=== PATIENT | male | born 1985 | race Caucasian/White ===

== ENCOUNTER → 2021-12-08 15:57 | Outpatient (CLI) | payer OTHER, SELFPAY ==
--- NOTE | ~2021-12-08 | US_ITS ---
US thyroid INDICATION: Thyroid disorder. Abnormal labs. TECHNIQUE: Real-time sonographic images of the thyroid gland were obtained. COMPARISON: No prior studies for comparison. FINDINGS: The right thyroid lobe measures 4.5 x 1.2 x 1.2 cm. The left thyroid lobe measures 4.2 x 1 .4 x 1.3 cm. There is normal echotexture and echogenicity throughout the thyroid gland. No discrete n odules identified. Normal vascular flow is present. IMPRESSION: 1. Normal thyroid without discrete nodule or abnormal vascularity. Reviewed, dictated and finalized at location A.
== END ==
PROVIDERS: PCP Nurse Practitioner Adult Health; Visit Provider Nurse Practitioner Adult Health
DX: E07.9 Disorder of thyroid, unspecified (principal)
CPT/HCPCS: 76536

== ENCOUNTER 2022-09-27 08:01 | Outpatient (CLI) | payer OTHER, SELFPAY ==
[2022-09-27 14:16] LABS: Kit Draw Collected
== END 2022-09-27 08:02 | disposition home or self-care (01) ==
LOC: ANHGOSHLAB 08:04
PROVIDERS: PCP Internal Medicine; Visit Provider Clinical Nurse Specialist
DX: E55.9 Vitamin D deficiency, unspecified (principal); F41.9 Anxiety disorder, unspecified; M45.9 Ankylosing spondylitis of unspecified sites in spine; R53.83 Other fatigue; Z13.220 Encounter for screening for lipoid disorders
CPT/HCPCS: 36415

== ENCOUNTER 2022-12-03 11:01 | Outpatient (CLI) | payer OTHER, SELFPAY ==
[2022-12-03 11:37] LABS: Kit Draw Collected
== END 2022-12-03 11:02 | disposition home or self-care (01) ==
LOC: ANHGOSHLAB 11:03
PROVIDERS: PCP Internal Medicine; Visit Provider Clinical Nurse Specialist
DX: D64.9 Anemia, unspecified (principal); R53.83 Other fatigue
CPT/HCPCS: 36415

== ENCOUNTER 2023-01-02 14:30 | Emergency (ER) | payer OTHER, SELFPAY ==
--- NOTE | ~2023-01-02 | XR_ITS ---
EXAMINATION: XR chest 2V Exam Date/Time: 01/02/2023 15:05 CDT HISTORY: dizziness sob/chest pain 4 days ago Comparison: None. RESULT: Lines, tubes, and devices: None. Lungs and pleura: Clear. Cardiomediastinal silhouette: Unremarkable. Other: No acute osseous or upper abdominal finding. IMPRESSION: No acute cardiopulmonary process. Reviewed, dictated and finalized at location K.
[2023-01-02 14:37] VITALS: BP 123/66; PULSE 98; RESP 18; TEMP 36.6; O2SAT 100
[2023-01-02 14:38] VITALS: BP 123/66; PULSE 98; RESP 18; TEMP 36.6; O2SAT 100
--- NOTE | 2023-01-02 14:56 | ED.URI ---
HPI - URI/Sore Throat General Chief Complaint: Shortness of Breath/Dyspnea Stated Complaint: Shortness of Breath,Dizziness Time Seen by Provider: 01/02/23 14:40 Source: patient Mode of arrival: ambulatory Limitations: no limitations History of Present Illness HPI Narrative: Pauline is a 37-year-old female patient presenting to the clinic today with complaints of shortness of breath, dizziness, chest pain, and feeling near syncopal. She reports 4 days ago she started having some chest pain and shortness of breath. Chest pain was sharp midsternal nonradiating. States that this pain would come and go for a few seconds to minutes however, that has resolved. Is still having a difficult time taking a deep breath as she feels that she cannot take a deep breath, became diaphoretic and felt as though she was going to pass out today. Denies drinking energy drinks. Denies being outside in the heat. States her PCP placed her on phentermine 3 weeks ago. Patient has history of depression/anxiety- takes Wellbutrin and Lexapro. No cardiopulmonary history. History of anemia and she takes iron. She is a non-smoker- not currently taking any OCP. Denies any fever, chills, upper respiratory symptoms, nausea, vomiting, diarrhea, or urinary symptoms other than urinary frequency. Vital signs reviewed and stable. SpO2 is 100% on room air blood pressure was initially 123/66 with heart rate of 98 beats per minute. Respirations 18 nonlabored MD elicited complaint: other (Shortness of breath, dizziness, chest discomfort) Related Data Home Medications Medication Instructions Recorded Confirmed meloxicam 7.5 mg tablet 7.5 mg PO DAILY 08/04/22 01/02/23 omeprazole 10 mg capsule,delayed 10 mg PO DAILY 08/04/22 01/02/23 release bupropion HCl 150 mg 24 hr tablet, 150 mg PO DAILY 12/03/22 01/02/23 extended release escitalopram oxalate 10 mg tablet 10 mg PO DAILY 01/02/23 01/02/23 Allergies Allergy/AdvReac Type Severity Reaction Status Date / Time No Known Allergies Allergy Verified 01/02/23 14:33 Review of Systems Review of Systems: Pertinent positives per HPI. Patient denies any fever, chills, rash, headache, visual changes, cough,palpitations, nausea, vomiting, diarrhea, constipation, abdominal pain, or any urinary issues. PMFSH Past Medical History Medical History (Updated 01/02/23 @ 16:22 by Navneet Coronado APRN) Anxiety Social History Social History (Updated 12/03/22 @ 10:16 by Candi Franklin [facility]) Smoking status: Former smoker Additional smoking assessment comments: smoked for 12-13 years Alcohol intake: current Alcohol use details: wine Substance use: never Lack of Transportation: No Lack of Food: Never True Current Housing: I Have Housing Concerned About Future Housing: No Difficulty Paying Gas/Electric Bills: No Difficulty Paying for Meds: No Currently Unemployed: No Education: Master's Degree or Higher Difficulty w/ Childcare or Family Care: No Comments At the time of my signature, I reviewed and agree with the nursing past medical, surgical, social, and family history. There is no relevant family history pertinent to the patient complaint. Exam Narrative: General: Well-developed, well nourished,anxious/tearful appearing Head: Normocephalic, atraumatic Eyes: Pupils equally round and reactive to light bilaterally, EOM intact, sclera and conjunctive clear, no discharge, lids normal Ears: TMs intact and clear, ear canals clear, no drainage, grossly hearing normal. Nose: Nares patent, no discharge, no inflammation, no sinus tenderness. Mouth: Oral pharynx without lesions or masses, good dentition, MMM. Neck: Supple, trachea midline, no enlargement of anterior or posterior cervical nodes, no thyroid masses or goiter palpable. Cardio: Regular rate and rhythm, s1 and s2 normal, no murmur appreciated. Resp: Clear to auscultation bilaterally, no rhonchi, rales, wheezing or rubs Abdome
--- NOTE | 2023-01-02 14:57 | ECG_ITS ---
Measurements Intervals [place] Rate: 85 P: 65 [place]: 130 QRS: 66 QRSD: 87 T: 64 QT: 351 QTc: 419 Interpretive Statements SINUS RHYTHM NONSPECIFIC T-WAVE ABNORMALITY- ANTERIOR LEADS BORDERLINE ECG NO PREVIOUS ECG AVAILABLE FOR COMPARISON Electronically Signed On 01-03-2023 0:10:07 CDT by Jermaine Stratton D.O.
[2023-01-02 14:59] LABS: Glucose Point of Care 159 mg/dl (65-105)
[2023-01-02 15:00] VITALS: BP 116/73; PULSE 90
[2023-01-02 15:02] VITALS: BP 123/77; BP 125/76; PULSE 89; PULSE 94
== END 2023-01-02 16:35 | disposition home or self-care (01) ==
PROVIDERS: Emergency Provider Nurse Practitioner Family; PCP Internal Medicine
DX: R07.89 Other chest pain (principal); R06.02 Shortness of breath; R42 Dizziness and giddiness; T50.5X5A Adverse effect of appetite depressants, initial encounter; F41.9 Anxiety disorder, unspecified; R73.9 Hyperglycemia, unspecified; N30.01 Acute cystitis with hematuria; Z87.891 Personal history of nicotine dependence
CPT/HCPCS: 71046; 81003; 82948; 87086; 93005; 99213; G0463

== ENCOUNTER → 2023-04-19 11:09 | Outpatient (REF) | payer OTHER, SELFPAY | LOC: ANHLAB 11:09 | PROVIDERS: PCP Internal Medicine; Visit Provider Plastic Surgery | DX: D48.5 Neoplasm of uncertain behavior of skin (principal); D22.9 Melanocytic nevi, unspecified | CPT/HCPCS: 88305 ==

== ENCOUNTER 2023-06-10 14:57 | Outpatient (CLI) | payer OTHER, SELFPAY ==
[2023-06-10 19:31] LABS: Basophils Percent Auto 0.7 % (0.2-1.2); Eosinophils Percent Auto 0.7 % (0-4.4); Hematocrit 39.6 % (37.0-47.0); Hemoglobin 12.4 g/dL (12.0-15.0); Immature Granulocyte Absolute 0.01 K/mm3 (0.00-0.031); Immature Granulocyte Percent A 0.2 % (0-0.5); Lymphocytes Percent Auto 29.1 % (18.3-44.2); Mean Corpuscular HGB Conc 31.3 g/dl (32-36); Mean Corpuscular Hemoglobin 29.9 pg (26-34); Mean Corpuscular Volume 95.4 fl (80-100); Mean Platelet Volume 9.7 fl (7.4-10.4); Monocytes Absolute Auto 0.3 K/mm3 (0.1-0.6); Neutrophils Absolute Auto 3.8 K/mm3 (1.3-6.7); Neutrophils Percent Auto 64.3 % (45.5-73.1); Platelet Count Result 313 k/mm3 (150-375); Red Blood Count 4.15 M/mm3 (4.2-5.4); Red Cell Distribution Width 12.8 % (11.5-14.5); White Blood Count 5.8 K/mm3 (4.5-10.0)
[2023-06-10 19:54] LABS: Alanine Aminotransferase 19 U/L (6-35); Albumin Level 4.2 g/dL (3.5-5.1); Alkaline Phosphatase 62 U/L (38-126); Anion Gap 8 mmol/L (8-16); Aspartate Amino Transferase 24 U/L (14-36); Bilirubin,Total 0.4 mg/dL (0.2-1.3); Blood Urea Nitrogen 11 mg/dL (7-17); Calcium 9.1 mg/dL (8.4-10.2); Carbon Dioxide 29 mmol/L (22-30); Chloride 102 mmol/L (98-107); Estimated Glomerular Filt Rate > 60; Glucose 94 mg/dL (65-110); Magnesium 2.3 mg/dL (1.6-2.3); Sodium 139 mmol/L (137-145)
[2023-06-10 20:20] LABS: Thyroid Stimulating Hormone 0.656 uIU/mL (0.465-4.680)
[2023-06-13 23:07] LABS: Vitamin D 1,25 (OH)2 Total 53 pg/mL (18-72); Vitamin D2 1,25 (OH)2 <8 pg/mL; Vitamin D3 1,25 (OH)2 53 pg/mL
== END 2023-06-10 14:58 | disposition home or self-care (01) ==
LOC: ANHGOSHLAB 14:58
PROVIDERS: PCP Internal Medicine; Visit Provider Nurse Practitioner Family
DX: E55.9 Vitamin D deficiency, unspecified (principal); L65.9 Nonscarring hair loss, unspecified; R25.2 Cramp and spasm
CPT/HCPCS: 36415; 80053; 82607; 82652; 83735; 84443; 85025

== ENCOUNTER 2023-09-05 12:31 | Outpatient (CLI) | payer OTHER, SELFPAY ==
[2023-09-07 13:31] LABS: DHEA-Sulfate 107 mcg/dL (23-266)
[2023-09-08 06:56] LABS: FSH 13.6 mIU/mL (***); LH 4.5 mIU/mL (***)
[2023-09-08 20:13] LABS: Testosterone Free 1.1 pg/mL (0.1-6.4); Testosterone Total 16 ng/dL (2-45)
[2023-09-12 02:47] LABS: Estradiol, Ultrasensitive 118 pg/mL
== END 2023-09-05 12:32 | disposition home or self-care (01) ==
LOC: ANHLAB 12:32
PROVIDERS: PCP Internal Medicine; Visit Provider Obstetrics & Gynecology
DX: L65.9 Nonscarring hair loss, unspecified (principal)
CPT/HCPCS: 36415; 82627; 82670; 83001; 83002; 83498; 84402; 84403

== ENCOUNTER 2023-09-09 17:07 | Emergency (ER) | payer OTHER, SELFPAY ==
[2023-09-09 17:25] VITALS: BP 145/98; PULSE 79; RESP 16; TEMP 36.6; O2SAT 100
--- NOTE | 2023-09-09 17:33 | ED.GENADULT ---
HPI - General Adult General Chief complaint: Urogenital-Female Stated complaint: Std Test Source: patient, RN notes reviewed and old records reviewed Mode of arrival: ambulatory Limitations: no limitations History of Present Illness HPI narrative: 37-year-old female to [facility] for complaint right lower quadrant tenderness, urinary frequency, burning with urination 5 days. Patient reports history of herpes and recently treated with valacyclovir. Patient denies lesions. Patient endorses she saw PCP on Tuesday and had UA done which was negative. Patient denies vaginal discharge. Patient reports new sexual partner. Patient has appointment with OBGYN next week. Related Data Home Medications Medication Instructions Recorded Confirmed valacyclovir 1 gram tablet 1,000 mg PO DAILY 09/09/23 09/09/23 Allergies Allergy/AdvReac Type Severity Reaction Status Date / Time No Known Allergies Allergy Verified 09/09/23 17:22 Review of Systems Review of Systems: All systems reviewed & are unremarkable except as noted in HPI and below Constitutional: Constitutional: Reports as per HPI and Denies fever(s) Eyes: Eyes: Reports no additional eye complaints ENT: Reports system reviewed and no additional complaints, except as documented Cardiovascular: Cardiovascular: Reports no additional cardiovascular complaints, Denies chest pain and Denies dyspnea Respiratory: Respiratory: Reports no additional respiratory complaints, Denies cough and Denies dyspnea Gastrointestinal: Gastrointestinal: Reports abdominal pain (RLQ tenderness) and Denies nausea Genitourinary: Genitourinary: Reports as per HPI, Reports nocturia and Reports other (burning with urination) Musculoskeletal: Musculoskeletal: Reports no additional musculoskeletal complaints Neurologic: Reports system reviewed and no additional complaints, except as documented Psychiatric: Psychiatric: Reports no additional psychiatric complaints PMFSH Past Medical History Medical History Anxiety Genital herpes Screening mammogram, encounter for Social History Social History Smoking status: Former smoker Second hand tobacco smoke exposure: No Additional smoking assessment comments: smoked for 12-13 years Alcohol intake: current Drinks per week: 7 Alcohol use details: wine Substance use: current Substance use type: marijuana Other substance usage details: 1 time every 2 months? 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 There is no relevant family history pertinent to the patient complaint. Exam Const: General: cooperative, healthy appearing, comfortable, no acute distress, alert and well nourished Nutritional Appearance: well nourished Orientation/consciousness: patient oriented x3 Limitations: no limitations HENMT: Head: normal to inspection Ears: external ears normal Face/Nose/Sinus: Normal external nose present, Normal nares present, normal facial exam, No erythema and No edema Face and sinus: normal facial exam, no erythema and no edema Mouth: Yes Normal oral and pal
[2023-09-09 19:32] LABS: Trichomonas Vag PCR NOT DETECTED (NOT DETECTE)
[2023-09-09 19:55] LABS: Chlamydia trachomatis NOT DETECTED (NOT DETECTE); Neisseria gonorrhoeae PCR NOT DETECTED (NOT DETECTE)
== END 2023-09-09 18:07 | disposition home or self-care (01) ==
PROVIDERS: Emergency Provider Nurse Practitioner Family; PCP Internal Medicine
DX: N30.01 Acute cystitis with hematuria (principal); B95.1 Streptococcus, group B, as the cause of diseases classified elsewhere; Z87.891 Personal history of nicotine dependence; F41.9 Anxiety disorder, unspecified
CPT/HCPCS: 81003; 87086; 87491; 87591; 87661; 99214; G0463

== ENCOUNTER 2023-12-07 15:31 | Emergency (ER) | payer OTHER, SELFPAY ==
--- NOTE | ~2023-12-07 | CT_ITS ---
CT abdomen pelvis w con Ordering provider: Sneha Adame APRN History: . abdominal and flank pain . Comparison: None. Technique: CT abdomen with IV and without oral contrast. Radiation reduction technique utilized. DLP is 253.56 mGy. Findings: VISUALIZED LOWER CHEST: Normal. UPPER ABDOMINAL ORGANS: Liver: Normal. Gallbladder: Normal. Spleen: Normal. Stomach/duodenum: Normal. Pancreas: Normal. Adrenals: Normal. Kidneys: Normal. Urinary bladder: Normal. Uterus: Normal. VISUALIZED BOWEL AND MESENTERY: Fecal material is seen in the colon suggestive of constipation. Focal area of air is seen in the left upper quadrant most likely in small bowel. Follow-up advised. Normal appendix. The bowel is otherwise normal. No free air or free fluid. No mesenteric lymphadenopathy. RETROPERITONEUM: Normal aorta. No retroperitoneal lymphadenopathy. MUSCULOSKELETAL: The superficial soft tissues are normal. Age appropriate degenerative changes of the spine. Bilateral sacroiliacs. IMPRESSION: No evidence of appendicitis, diverticulitis or intestinal obstruction. Constipation. Focal area of air is seen in the left upper quadrant most likely in the small bowel. Follow-up advise d. Reviewed, dictated and finalized at location A. IMPRESSION: No evidence of appendicitis, diverticulitis or intestinal obstruction. Constipation. Focal area of air is seen in the left upper quadrant most likely in the small b owel. Follow-up advised.
[2023-12-07 15:31] VITALS: BP 132/71; PULSE 71; RESP 16; TEMP 36.4; O2SAT 100
--- NOTE | 2023-12-07 16:31 | ED.GENADULT ---
HPI - General Adult General Chief complaint: Abdominal Pain <Sneha De La Vega October, PRECISION LATHE OPERATOR - Last Filed: 12/07/23 19:44> Stated complaint: abd pain <Sneha De La Vega October, PRECISION LATHE OPERATOR - Last Filed: 12/07/23 19:44> Time Seen by Provider: 12/07/23 16:31 <Sneha De La Vega October, PRECISION LATHE OPERATOR - Last Filed: 12/07/23 19:44> Focused HPI: Pauline Sorensen is a 38 y/o female who presents with reports of being treated for a UTI for the past two days - she is currently taking Macrobid. She states she was having a fever 3 days ago. Today she started to have severe right lower abdominal pain at around 0730 and it moved to her back she thought she would have to go straight to the ER but took a pain pill so she could make it to her PCP appointment and her PCP states her UTI is not getting better and she is worried she may have appendicitis. GENERAL: Well-appearing, well-nourished, and in no acute distress. HEAD: Normocephalic, atraumatic. CHEST: Clear to auscultation. ?No respiratory distress. HEART: Regular rate and rhythm.? NEURO: ?Alert and oriented x3. Patient screened in triage and initial orders placed.? ?Additional care and disposition to be based upon?diagnostic testing and treatment. <Sneha De La Vega October, - Last Filed: 12/07/23 19:44> Related Data Home medications: Home Medications Medication Instructions Recorded Confirmed valacyclovir 1 gram tablet 1,000 mg PO DAILY 09/09/23 12/07/23 <Sneha De La Vega October, - Last Filed: 12/07/23 19:44> Allergies/adverse reactions: Allergies Allergy/AdvReac Type Severity Reaction Status Date / Time No Known Allergies Allergy Verified 12/07/23 14:12 <Sneha De La Vega October, - Last Filed: 12/07/23 19:44> Review of Systems Review of Systems: All systems are reviewed and are negative unless stated otherwise in the HPI. <Veto Leiva MD - Last Filed: 12/07/23 19:15> PMFSH Past Medical History Medical History: Medical History Anxiety Genital herpes Screening mammogram, encounter for <Sneha Adame, PRECISION LATHE OPERATOR - Last Filed: 12/07/23 19:44> Social History Social History: Social History Smoking status: Former smoker Second hand tobacco smoke exposure: No Additional smoking assessment comments: smoked for 12-13 years Alcohol intake: current Drinks per week: 7 Alcohol use details: wine Substance use: current Substance use type: marijuana Other substance usage details: 1 time every 2 months? 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 HEENT: PERRL, no rhinorrhea, no post nasal drip, oropharynx clear. Cardiovascular: Regular rate and rhythm, no murmurs, rubs or gallops, no peripheral edema. Respiratory: Clear to auscultation bilaterally, no tachypnea, no wheezing, no rhonchi, no rubs, no respiratory distress. Abdomen: Soft, nontender, nondistended, no rebound, no guarding, no peritoneal signs. Musculoskeletal: No joint swelling or deformity, normal muscle tone. Skin: No rashes or petechia, no signs of infection. Neurological: Alert and oriented to person, place, and time. Follows all commands. No focal deficits, speec
[2023-12-07 17:17] LABS: Basophils Percent Auto 0.6 % (0.2-1.2); Eosinophils Absolute Auto 0.1 K/mm3 (0-0.3); Eosinophils Percent Auto 1.7 % (0-4.4); Hematocrit 37.1 % (37.0-47.0); Hemoglobin 12.4 g/dL (12.0-15.0); Immature Granulocyte Absolute 0.01 K/mm3 (0.00-0.031); Immature Granulocyte Percent A 0.3 % (0-0.5); Lymphocytes Absolute Auto 1.31 K/mm3 (0.9-3.2); Lymphocytes Percent Auto 36.8 % (18.3-44.2); Mean Corpuscular HGB Conc 33.4 g/dl (32-36); Mean Corpuscular Hemoglobin 31.5 pg (26-34); Mean Corpuscular Volume 94.2 fl (80-100); Mean Platelet Volume 9.3 fl (7.4-10.4); Monocytes Absolute Auto 0.2 K/mm3 (0.1-0.6); Monocytes Percent Auto 5.9 % (2.6-8.5); Neutrophils Percent Auto 54.7 % (45.5-73.1); Platelet Count Result 206 k/mm3 (150-375); Red Blood Count 3.94 M/mm3 (4.2-5.4); Red Cell Distribution Width 11.1 % (11.5-14.5); White Blood Count 3.6 K/mm3 (4.5-10.0)
[2023-12-07 17:25] LABS: Alanine Aminotransferase 18 U/L (6-35); Albumin Level 4.7 g/dL (3.5-5.1); Alkaline Phosphatase 73 U/L (38-126); Anion Gap 10 mmol/L (4-12); Aspartate Amino Transferase 22 U/L (14-36); Bilirubin,Total 0.5 mg/dL (0.2-1.3); Blood Urea Nitrogen 13 mg/dL (7-17); Calcium 8.6 mg/dL (8.4-10.2); Carbon Dioxide 27 mmol/L (22-30); Chloride 98 mmol/L (98-107); Estimated CRCL calculation 64 ml/min; Estimated Glomerular Filt Rate > 60; Glucose 184 mg/dL (65-110); Potassium 3.6 mmol/L (3.4-5.0); Sodium 135 mmol/L (137-145)
[2023-12-07 18:04] VITALS: BP 118/74; PULSE 75; RESP 18; O2SAT 100
[2023-12-07 18:37] LABS: Appearance Urine Clear (Clear); Bacteria Urine None Seen /hpf; Bilirubin Urine Negative (Negative); Blood Urine Negative (Negative); Color Urine Yellow (Yellow); Glucose Urine UA Negative (Negative); Ketones Urine Negative (Negative); Leukocyte Esterase Ur Trace LEU/UL (Negative); Need Manual Microscopic Reviewed; Nitrate Urine Negative (Negative); Non Pathogenic Casts 0-2; Protein Urine Negative (Negative); RBC Urine 0-2 /hpf (0-2); Specific Grav Ur 1.002 (1.001-1.035); Squamous Epithelial Cell Urine Few /hpf (Few); Urobilinogen Urine 0.2 mg/dL (<2.0); WBC Urine 0-5 /hpf (0-3); pH Urine 6.5 (5.0-9.0)
[2023-12-07 18:39] LABS: Add Urine Microscopic? YES
[2023-12-07 18:57] VITALS: BP 122/74; PULSE 69; RESP 15; O2SAT 100
[2023-12-09 11:36] LABS: Estimated CRCL calculation 64 ml/min; Estimated Glomerular Filt Rate > 60
== END 2023-12-07 18:58 | disposition home or self-care (01) ==
PROVIDERS: Nurse Practitioner Family; Emergency Provider Emergency Medicine; PCP Internal Medicine
DX: R10.9 Unspecified abdominal pain (principal); K59.00 Constipation, unspecified; Z87.891 Personal history of nicotine dependence
CPT/HCPCS: 36415; 74177; 80053; 81001; 81025; 82565; 85025; 99284; Q9967

== ENCOUNTER 2024-03-29 16:32 | Emergency (ER) | payer OTHER, SELFPAY ==
[2024-03-29 16:43] VITALS: BP 125/101; PULSE 68; RESP 14; TEMP 36.6; O2SAT 100
--- NOTE | 2024-03-29 16:43 | ED.URI ---
HPI - URI/Sore Throat General Chief Complaint: Upper Respiratory Infection Stated Complaint: sorethroat,cold symptoms History of Present Illness HPI Narrative: 38 y/o female presented for c/o sinus congestion and pressure, cough, and sore throat. Onset 2 weeks. Denies sob, wheezing, n/v/d/f/c. Taking DayQuil and NyQuil. Son with strep. Related Data Allergies Allergy/AdvReac Type Severity Reaction Status Date / Time No Known Allergies Allergy Verified 03/29/24 16:44 Review of Systems Review of Systems: CONSTITUTIONAL: Denies body aches, fever, chills, or sweats. EYES: Denies visual changes, redness, or discharge. ENT: reports rhinorrhea, congestion, sinus pain, sore throat CARDIOVASCULAR: Denies chest pain, palpitations, or edema. RESPIRATORY: reports cough Denies dyspnea. GASTROINTESTINAL: Denies abdominal pain, nausea, vomiting, or diarrhea. SKIN: Denies rash, itching, or wounds. MUSCULOSKELETAL: Denies back pain, joint pain, or myalgia. NEUROLOGIC: Denies headache PMFSH Past Medical History Medical History Anxiety Genital herpes Screening mammogram, encounter for Social History Social History Smoking status: Former smoker Second hand tobacco smoke exposure: No Additional smoking assessment comments: smoked for 12-13 years Alcohol intake: current Drinks per week: 7 Alcohol use details: wine Substance use: current Substance use type: marijuana Other substance usage details: 1 time every 2 months? 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 EYES: conjunctivae clear ENT: Mucous membranes moist. TMs pearly poe with normal light reflex bilaterally; no tragal tenderness. Oropharynx not erythematous without lesions. Tonsils not enlarged and without exudate. No drooling, no hoarseness, no trismus, uvula midline. No tripod positioning, hot potato voice, or soft palate swelling. NECK: Supple. No lymphadenopathy CHEST: Clear to auscultation, breath sounds equal. No respiratory distress, speaks in full sentences. HEART: Regular rate and rhythm. No murmur heard. SKIN: Warm, dry, no rash. NEURO: Alert and oriented x3. Course Course Emergency Course: Patient is aware of diagnosis, understands and agrees to treatment plan. Anticipatory guidance given. Patient agrees to follow-up as directed and is aware of reasons to seek care at the emergency department. Portions of this record may have been created with voice recognition software Level of Care: Express Care Visit MDM - URI/Sore Throat MDM Narrative Medical decision making narrative: Discussed physical exam findings consistent with sinusitis. Advised supportive treatments. Patient is appropriate for outpatient treatment and follow-up. Differential Diagnosis Differential diagnosis: Likely upper respiratory infection, viral infection and pharyngitis Discharge Plan Discharge Clinical Impression: Sinusitis Patient Disposition: Home, Self-Care Condition: Stable Instructions: Antibiotic Form, Sinusitis (ED) Additional Instructions: Take antibiotic as directed Recommend Flonase spray and Zyrtec (or Claritin/Nicole) over the counter Cough syrup may cause drowsiness; avoid driving or take it at night time. Tylenol 1000mg every 8 hours as needed for pain Symptomatic treatment includes: rest, push fluids, and increase humidity of the air at home. Follow up with your primary care provider in 1 week. Go to the ER for worsening symptoms or concerns. Prescriptions: New amoxicillin-pot clavulanate 875-125 mg tablet 1 tablet PO Q12H 7 Days Qty: 14 0RF No Action bupropion HCl 150 mg tablet extended release 24 hr 150 mg PO DAILY Qty: 90 1RF Follow-up/Referrals: William Shaw DO [Primary Care Provider] - Time of Disposition: 16:49
[2024-03-29 16:45] VITALS: BP 125/101; PULSE 68; RESP 14; TEMP 36.6; O2SAT 100
== END 2024-03-29 16:53 | disposition home or self-care (01) ==
PROVIDERS: Emergency Provider Nurse Practitioner Family; PCP Internal Medicine
DX: J32.9 Chronic sinusitis, unspecified (principal); Z87.891 Personal history of nicotine dependence; F12.90 Cannabis use, unspecified, uncomplicated
CPT/HCPCS: 99213; G0463

== ENCOUNTER 2024-06-05 09:57 | Emergency (ER) | payer OTHER, SELFPAY ==
[2024-06-05 10:17] VITALS: BP 112/68; PULSE 88; RESP 18; TEMP 36.8; O2SAT 99
--- NOTE | 2024-06-05 10:27 | ED_ITS ---
HPI - URI/Sore Throat General Chief Complaint: Upper Respiratory Infection Stated Complaint: congestion Time Seen by Provider: 06/05/24 10:32 Source: patient, RN notes reviewed and old records reviewed Mode of arrival: ambulatory Limitations: no limitations History of Present Illness HPI Narrative: 38-year-old female presents to the [facility] with complaints of sinus congestion and intermittent cough for 5 days. Patient states that on 31 May she started with some sinus congestion. Reports yesterday fever of 101. Has taken ibuprofen and Tylenol. No other treatment prior to arrival. Onset (ago): day(s) (5) Treatments prior to arrival: acetaminophen and ibuprofen Related Data Allergies Allergy/AdvReac Type Severity Reaction Status Date / Time No Known Allergies Allergy Verified 03/29/24 16:44 Review of Systems Review of Systems: All systems reviewed & are unremarkable except as noted in HPI and below Constitutional: Constitutional: Reports no additional constitutional complaints ENT: Reports as per HPI, Reports nasal congestion and Reports nasal discharge Cardiovascular: Cardiovascular: Reports no additional cardiovascular complaints, Denies chest pain and Denies dyspnea Respiratory: Respiratory: Reports as per HPI, Denies chest congestion, Reports cough and Denies dyspnea Musculoskeletal: Musculoskeletal: Reports no additional musculoskeletal complaints Integumentary/Breasts: Skin/Breast: Reports system reviewed and no additional complaints, except as docu PMFSH Past Medical History Medical History Screening mammogram, encounter for Genital herpes Anxiety Social History Social History Smoking status: Former smoker Second hand tobacco smoke exposure: No Additional smoking assessment comments: smoked for 12-13 years Alcohol intake: current Drinks per week: 7 Alcohol use details: wine Substance use: current Substance use type: marijuana Other substance usage details: 1 time every 2 months? 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 There is no relevant family history pertinent to the patient complaint. Exam Const: General: cooperative, healthy appearing, comfortable, no acute distress, well developed, alert and well nourished Nutritional Appearance: well nourished Orientation/consciousness: patient oriented x3 Limitations: no limitations HENMT: Head: normal to inspection Ears: hearing grossly normal bilaterally, external ears normal, TM's normal bilaterally, EAC's normal, mastoids normal and no periauricular adenopathy Face/Nose/Sinus: Normal external nose present, Normal nasal mucous membranes and turbinates present, Nasal discharge present clear bilateral, normal facial exam and face symmetric Mouth: Yes Normal oral and palatal mucosa present, Yes lip normal, Yes tongue normal and Yes moist mucous membranes Throat: posterior oropharynx normal, tonsils normal, uvula midline, postnasal drainage and no uvular edema Eyes: General: appearance normal, both eyes and all related structures Alignment and Position: alignment normal Neck: Neck: normal visual inspection, full ROM, no lymphadenopathy and no meningeal signs Chest: Chest palpation & inspection: normal inspection of the chest Resp: Effort & Inspection: normal respiratory effort and able to speak in complete sentences Auscultation: clear to auscultation bilaterally, no crackles, no rales, no rhonchi and no wheezes Cardio: Rate: regular rate Skin: General skin exam: normal color and no rashes or lesions noted Neuro: General: patient oriented x3, gait normal, moves all extremities and no meningeal signs Cognition (Neuro): normal cognition Speech: normal speech Gait exam (Neuro): Normal gait present Extrem: General: normal to inspection, full ROM, capillary refill normal and normal gait Psych: Appearance: grossly normal and well kempt Mental Status: mental status grossly normal Speech and movement: Normal speech and movement present and Clear speech present Affect: normal affect Attitude: cooperative Course Course Level of Care: Express Care Visit Vital Signs Vital signs: Vital Signs Temperature 98.3 F 06/05/24 10:17 Pulse Rate 88 06/05/24 10:17 Respiratory Rate 18 06/05/24 10:17 Blood Pressure 112/68 06/05/24 10:17 Pulse Oximetry 99 12/31/24 10:17 Oxygen Delivery Room Air 06/05/24 10:17 Temperature 98.3 F 06/05/24 10:17 Pulse Rate 88 06/05/24 10:17 Respiratory Rate 18 06/05/24 10:17 Blood Pressure 112/68 06/05/24 10:17 Pulse Oximetry 99 06/05/24 10:17 Oxygen Delivery Room Air 06/05/24 10:17 Reviewed MDM - URI/Sore Throat MDM Narrative Medical decision making narrative: Patient sitting comfortably in exam room. Nontoxic, vitals stable. Patient in no acute distress patient with 5 day history of URI symptoms. Postnasal drainage noted without any other acute findings. Patient's flu and COVID were negative in clinic. Offered chest x-ray Patient is appropriate for outpatient treatment and follow-up for viral URI Discharge instructions reviewed with patient, as well as provided in writing per nursing staff. The instructions also include specific and strict return/GO TO THE ER as well as f/u information. All questions have been answered, and the patient deny any further questions with discharge and discharge plan. Some parts of this dictation were generated by voice recognition software and may contain typographical and/or grammatical inaccuracies. Differential Diagnosis Differential diagnosis: Likely upper respiratory infection, otitis media, sinusitis, viral infection, bronchitis and influenza Lab Data Labs: Lab Results 06/05/24 Range/Units 10:55 POC Influenza A Ag Negative (Negative) POC Influenza B Ag Negative (Negative) POC SARS CoV-2 Ag Negative (Negative) Reviewed Critical Care Time Critical Care Time Critical Care Time: No Discharge Plan Discharge Clinical Impression: PND (post-nasal drip) Upper respiratory infection Qualifiers: URI type: unspecified viral URI Qualified Code(s): J06.9 - Acute upper respiratory infection, unspecified Patient Disposition: Home, Self-Care Condition: Stable Instructions: Antibiotic Form, Upper Respiratory Infection (ED), Postnasal Drip (DC) Additional Instructions: Your rapid COVID test were negative Your rapid flu test was negative Your symptoms are likely due to a viral illness, which is not treated with antibiotics. Typically viral infections last 7-10 days, can linger for couple of weeks. It is very important to treat your symptoms. Drink plenty of water, Gatorade, Pedialyte, ice pops or Jell-O. -Alternate Tylenol and Motrin per package directions for fever or pain. You can alternate every 4 hours -Antihistamine medication such as Zyrtec/Claritin/Nicole during the day can help improve symptoms. -doing daily nasal irrigations can help relieve pressure your sinuses. Things like a Neti pot -Use Flonase twice a day for 5 days then daily to help reduce the inflammation and dry up your sinuses. -You can also use Mucinex. Be sure to drink plenty of water with this medicati on at least 8 ounces with every dose and it is important to drink 8 to 10 glasses of water per day. Water is a natural decongestant -Eat and drink things that are easy to swallow, like tea or soup, or popsicles. -Oral rinses such as: Salt water gargles and/or may use topical anesthetic (eg. Chloraseptic spray) or lozenges to relieve dryness or throat pain). -Frequent hand washing or hand spot cleaner is one of the best ways to prevent spread of infection. -Using a vaporizer or humidifier at night will also help thin secretions and help with coughing up phlegm. -Follow up with primary care provider in 7-10 days if condition is not improving - For new or worsening symptoms go directly to the nearest ER Patient Language: Surinamese Prescriptions: No Action amoxicillin-pot clavulanate 875-125 mg tablet 1 tablet PO Q12H 7 Days Qty: 14 0RF bupropion HCl 150 mg tablet extended release 24 hr 150 mg PO DAILY Qty: 90 1RF Follow-up/Referrals: William Shaw DO [Primary Care Provider] - 2 Weeks ([facility] follow-up) Stand Alone Forms: Work/School Release IP Time of Disposition: 10:57
[2024-06-05 10:57] LABS: EDCOVIDSCREEN Negative (Negative); EDINFLUASCREEN Negative (Negative); EDINFLUBSCREEN Negative (Negative)
--- OUTSIDE RECORDS SUMMARY | 2024-06-12 21:11 | XMS_ITS | Referral Summary ---
Author Organization [facility] Address [address] [place] [address] Care Team Providers Care After School Program Assistant Name Role Phone Unavailable Primary Care Provider Unavailabl e Source Comments [facility],non-owned Affiliates and Associated Physician Practices is amultiple site organization consisting of ambulatory clinics and hospital sitesin [place], [place], [place] and [place]. This disclosure is being madepursuant to the Care Everywhere program and may not contain all information available regarding this patient. Last updated 18.[facility] Social History Tobacco Use Types Packs/Day Years Used Date Smoking Tobacco: Never Assessed Sex and Gender Information Value Date Recorded Sex Assigned at Not on file Gender Identity Not on file Sexual Orientation Not on file Plan of Treatment Not on file
--- OUTSIDE RECORDS SUMMARY | 2024-06-12 21:11 | XMS_ITS | Referral Summary ---
Author Organization [facility] Address [address] [place] [address] Care Team Providers Care Farm General Manager Name Role Phone Pcp, Verify Primary Care Provider Unavailabl e Social History Tobacco Use Types Packs/Day Years Used Date Smoking Tobacco: Never Assessed Sex and Gender Information Value Date Recorded Sex Assigned at Not on file Gender Identity Not on file Sexual Orientation Not on file Plan of Treatment Not on file Care Teams Farm General Manager Relationship Specialty Start Date End Date Pcp, Verify PCP - General 02/28/20
--- OUTSIDE RECORDS SUMMARY | 2024-06-12 21:11 | XMS_ITS | Encounter Summary ---
Author Organization [facility] Address [address] [place] [address] Care Team Providers Care Industrial Renderer Name Role Phone Unavailable Primary Care Provider Unavailabl e Encounter Details Date Type Department Care Team (Latest Contact Info) Description 09/07/2021 4:20 PM CDT - 09/07/2021 11:59 PM CDT Hospital Encounter [facility] Imaging Services - Radiology [address] [place] [id number] Master Berg MD Discharge Disposition: Home or Self Care Social History Tobacco Use Types Packs/Day Years Used Date Smoking Tobacco: Never Assessed Sex and Gender Information Value Date Recorded Sex Assigned at Not on file Gender Identity Not on file Sexual Orientation Not on file documented as of this encounter Plan of Treatment Not on file documented as of this encounter Procedures Procedure Name Priority Date/Time Associated Diagnosis Comments XR SI JOINTS 2VW OR LESS Routine 09/07/2021 4:51 PM CDT Ankylosing spondylitis of multiple sites in spine (HCC) documented in this encounter Results * XR SACROILIAC JOINTS < 3 VW (09/07/2021 4:51 PM CDT) Anatomical Region Laterality Modality Pelvis, Lower Extremity Radiogra [facility] 09/07/2021 4:58 PM CDT Impressions 09/07/2021 4:58 PM CDT Unremarkable plain film examination of the right and left SI joint. *Reading Radiologist: William Magaña on 09/07/2021 at 4:58 PM Narrative 09/07/2021 4:58 PM CDT HISTORY: History of ankylosing spondylitis. COMPARISON: None DATE: 09/07/2021 4:32 PM PROCEDURE: ??XR SI JOINTS 2VW OR LESS*[id number] FINDINGS: 3 views of the pelvis were performed as and SI joint plain film study. There is no fracture identified at the sacrum. There is no fusion identified at the right or left SI joint. There is no evidence of erosion. Procedure Note William Magaña MD - 09/07/2021 HISTORY: History of ankylosing spondylitis. COMPARISON: None DATE: 09/07/2021 4:32 PM PROCEDURE: XR SI JOINTS 2VW OR LESS*[id number] FINDINGS: 3 views of the pelvis were performed as and SI joint plain film study. There is no fracture identified at the sacrum. There is no fusion identified at the right or left SI joint. There is no evidence of erosion. IMPRESSION Unremarkable plain film examination of the right and left SI joint. *Reading Radiologist: William Magaña on 09/07/2021 at 4:58 PM Master Berg MD DIAGNOSTIC IMAGING [facility] documented in this encounter Visit Diagnoses Diagnosis Ankylosing spondylitis of multiple sites in spine (HCC) Ankylosing spondylitis documented in this encounter
--- OUTSIDE RECORDS SUMMARY | 2024-06-12 21:11 | XMS_ITS | Clinical Summary ---
Author Organization [facility] Address [address] [place] [address] Care Team Providers Care School Laboratory Technician Name Role Phone Unavailable Primary Care Provider Unavailabl e Source Comments [facility],non-owned Affiliates and Associated Physician Practices is amultiple site organization consisting of ambulatory clinics and hospital sitesin [place], [place], [place] and [place]. This disclosure is being madepursuant to the Care Everywhere program and may not contain all information available regarding this patient. Last updated 18.[facility] Social History Tobacco Use Types Packs/Day Years Used Date Smoking Tobacco: Never Assessed Sex and Gender Information Value Date Recorded Sex Assigned at Not on file Gender Identity Not on file Sexual Orientation Not on file Plan of Treatment Health Maintenance Due Date Last Done Comments LIPID TESTING 1983 MAMMOGRAM 1983 PAP SMEAR 1983 HIV SCREENING 10/05/1998 HEPATITIS C SCREENING 10/01/2001 DTAP/TDAP/TD VACCINES (1 - Tdap) 10/05/2002 HEPATITIS B VACCINE (1 of 3 - 19+ 3-dose series) 10/05/2002 COVID-19 VACCINE (2 - 2023-2 5 season) 2024 08/11/2020 INFLUENZA VACCINE (#1) 2024 DEPRESSION SCREENING 06/06/2024 ZOSTER VACCINE (1 of 2) 10/05/2033 HIB VACCINE Aged Out No longer eligi ble based on patient's age to complete this topic HPV VACCINE Aged Out No longer eligi ble based on patient's age to complete this topic MENINGOCOCCAL VACCINE Aged Out No mirella majo eligible based on patient's age to complete this topic PNEUMOCOCCAL VACCINE Aged Out No long er eligible based on patient's age to complete this topic
--- OUTSIDE RECORDS SUMMARY | 2024-06-12 21:11 | XMS_ITS | Patient Health Summary ---
Author Organization [facility] Address [address] [facility] [facility] [place] [address] Care Team Providers Care Principal Engineer Name Role Phone Unavailable Primary Care Provider Unavailabl e Note from [facility],non-owned Affiliates and Associated Physician Practices is amultiple site organization consisting of ambulatory clinics and hospital sitesin [place], [place], [place] and [place]. This disclosure is being madepursuant to the Care Everywhere program and may not contain all information available regarding this patient. Last updated 18.[facility] Social History Tobacco Use Types Packs/Day Years Used Date Smoking Tobacco: Never Assessed Sex and Gender Information Value Date Recorded Sex Assigned at Not on file Gender Identity Not on file Sexual Orientation Not on file Procedures * DERMATOPATHOLOGY(Performed 03/01/2022) Performed for Rash and other nonspecific skin eruption * XR SI JOINTS 2VW OR LESS(Performed 09/07/2021) Performed for Ankylosing spondylitis of multiple sites in spine (HCC) Results * DERMATOPATHOLOGY (03/01/2022 12:00 AM CDT) Case Report Dermatopathology Report ? Case: [id number] ? Authorizing Provider: ??Jennifer Al, ?Collected: ? 03/01/2022 12:00 AM ? SEAM CHECKER-HYPERION ESSBASE DEVELOPER ? Ordering Location: ? [facility] DermPath Lab ?Received: ?03/02/2022 11:32 AM ? Pathologist: ? Dorothy Alegre, ? MD ? Specimen: ?Skin, left cheek ? 2 5:19 PM CDT DERMATOPATHOLOGY LABORATORY Final Diagnosis Specimen A. 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 The specimen consists of a punch biopsy measuring 4x4x4 mm. Jar 0. 2 5:19 PM CDT DERMATOPATHOLOGY LABORATORY Microscopic Description Specimen A. SKIN, left cheek: The epidermis is largely unremarkable. A mild perivascular and perifollicular inflammatory infiltrate composed predominantly of lymphocytes is noted in the upper and mid dermis. Dilated thin-walled superficial dermal blood vessels are observed. Solar elastosis is present. Grocott's methenamine silver (GMS) stain fails to highlight fungal elements in the available sections. Additional deeper sections were obtained and reviewed. 2 5:19 PM CDT DERMATOPATHOLOGY LABORATORY Disclaimer An external and internal positive and negative controls are appropriate for the histochemical, immunohistochemical and immunofluorescence stain(s) in this case (if any), except where stated explicitly. The performance characteristics of the stain(s) cited in this report were developed and its performance characteristic determined by the Dermatopathology Laboratory at [facility], directed by Dr. Nigel Vuong. These tests need not be, and therefore are not, approved by the [place] Food and Drug Administration. The tests are used for clinical purposes. Billing Codes Specimen Charges Stain Charges 91787 1 61473 1 2 5:19 PM CDT DERMATOPATHOLOGY LABORATORY Embedded Images 2 5:19 PM CDT DERMATOPATHOLOGY LABORATORY Pathology/Cytolog y TISSUE SPECIMEN FROM SKIN / Unknown 03/01/2022 03/02/2022 11:32 AM CDT Jennifer Mosley APRN-[facility] - PATH OLOGY/CYTOLOGY ORDERABLES DERMATOPATHOLOGY LABORATORY [facility] - Department of Dermatology [address], [address] [phone] * XR SACROILIAC JOINTS < 3 VW (09/07/2021 4:51 PM CDT) Anatomical Region Laterality Modality Pelvis, Lower Extremity Radiogra phic Imaging 09/07/2021 4:58 PM CDT Impressions 09/07/2021 4:58 PM CDT Unremarkable plain film examination of the right and left SI joint. *Reading Radiologist: William Magaña on 09/07/2021 at 4:58 PM Narrative 09/07/2021 4:58 PM CDT HISTORY: History of ankylosing spondylitis. COMPARISON: None DATE: 09/07/2021 4:32 PM PROCEDURE: ??XR SI JOINTS 2VW OR LESS*[id number] FINDINGS: 3 views of the pelvis were [...] PM PROCEDURE: XR SI JOINTS 2VW OR LESS*[id number] FINDINGS: 3 views of the pelvis were [...] PM Master Berg MD DIAGNOSTIC IMAGING O [facility]
--- OUTSIDE RECORDS SUMMARY | 2024-06-12 21:11 | XMS_ITS | Encounter Summary ---
Author Organization [facility] Address [address] [place] [address] Care Team Providers Care Digital Specialist Name Role Phone Unavailable Primary Care Provider Unavailabl e Encounter Details Date Type Department Care Team (Late st Contact Info) Description 04/21/2015 12:33 AM [facility] Troy Pinedo, DO [address] [address] Discharge Disposition: Home or Self Care Social History Tobacco Use Types Packs/Day Years Used Date Smoking Tobacco: Never Assessed Sex and Gender Information Value Date Recorded Sex Assigned at Not on file Gender Identity Not on file Sexual Orientation Not on file documented as of this encounter Discharge Disposition Disposition Code Departure Means Destination Home or Self Care documented in this encounter Plan of Treatment Not on file documented as of this encounter Visit Diagnoses Not on filedocumented in this encounter
--- OUTSIDE RECORDS SUMMARY | 2024-06-12 21:11 | XMS_ITS | Clinical Summary ---
Author Organization [facility] Address [address] [place] [address] Care Team Providers Care Operations Support Specialist Name Role Phone Pcp, Verify Primary Care Provider Unavailabl e Social History Tobacco Use Types Packs/Day Years Used Date Smoking Tobacco: Never Assessed Sex and Gender Information Value Date Recorded Sex Assigned at Not on file Gender Identity Not on file Sexual Orientation Not on file Plan of Treatment Health Maintenance Due Date Last Done Comments Depression Screening 1995 Varicella Vaccine (1 of 2 - 13+ 2-dose series) 10/05/1996 DTaP/Tdap/Td Vaccine (1 - Tdap) 10/05/2002 Hepatitis B Vaccine (1 of 3 - 19+ 3-dose series) 10/05/2002 Breast Cancer Screening 2023 COVID-19 Vaccine ( - 2023-2 5 season) 2024 Influenza Vaccine (#1) 2024 HPV Vaccine Aged Out No longer eligi ble based on patient's age to complete this topic Meningococcal Vaccine Aged Out No mirella majo eligible based on patient's age to complete this topic Pneumococcal Vaccine 0-64 Aged Out No longer eligible based on patient's age to complete this topic Care Teams Operations Support Specialist Relationship Specialty Start Date End Date Pcp, Verify PCP - General 02/28/20
== END 2024-06-05 11:02 | disposition home or self-care (01) ==
PROVIDERS: Emergency Provider Nurse Practitioner; PCP Internal Medicine
DX: R09.82 Postnasal drip (principal); J06.9 Acute upper respiratory infection, unspecified; Z20.822 Contact with and (suspected) exposure to COVID-19; Z87.891 Personal history of nicotine dependence
CPT/HCPCS: 87426; 87804; 99212; G0463

== ENCOUNTER 2025-04-10 08:52 | Outpatient (CLI) | payer OTHER, SELFPAY ==
--- NOTE | ~2025-04-10 | MM_ITS ---
EXAMINATION: MM screening daxa BI w daysi HISTORY: Screening TECHNIQUE: Craniocaudal and mediolateral oblique 3-D tomosynthesis images were obtained and synthetic 2-D images were generated. CAD analysis was submitted and interpreted. COMPARISON: Baseline BREAST PARENCHYMAL COMPOSITION: There are scattered areas of fibroglandular density. FINDINGS: There is no evidence of suspicious mass, calcification, or architectural distortion to suggest malignancy in either breast. IMPRESSION: 1. No mammographic evidence of malignancy. 2. Recommend routine screening mammography in one year. BI-RADS Category 1: Negative Reviewed, dictated and finalized at location B. EWATER OPERATOR
--- OUTSIDE RECORDS SUMMARY | 2025-04-10 09:17 | XMS_ITS | Clinical Summary ---
Author Organization [facility] Address [address] [place] [address] Care Team Providers Care Train Brakeman Name Role Phone Michelleelaine William Randall ECHEVARRIA Primary Care Provider Allergies No known active allergies Medications buPROPion XL (WELLBUTRIN XL) 150 mg 24 hr tablet Take 2 tablets (300 mg total) by mouth daily 08/20/2024 Active Active Problems No known active problems Social History Tobacco Use Types Packs/Day Years Used Date Smoking Tobacco: Former Cigarettes Smokeless Tobacco: Never Tobacco Cessation:Counseling Given: Not Answered Comments Unknown Sex and Gender Information Value Date Recorded Sex Assigned at Not on file Legal Sex Female 2:07 PM ACCESS CLINICIAN Gender Identity Not on file Sexual Orientation Not on file Last Filed Vital Signs Vital Sign Reading Time Taken Comments Blood Pressure 112/71 09/10/2024 10:00 AM CDT Pulse 71 09/10/2024 10:00 AM CDT Temperature 36.8 C (98.3 F) 09/10/2024 10:00 AM CDT Respiratory Rate - - Oxygen Saturation 100% 09/10/2024 10:00 AM CDT Inhaled Oxygen Concentration - - Weight 58.5 kg (129 lb) 09/10/2024 10:00 AM CDT Height 157.5 cm (5' 2) 09/10/2024 10:00 AM CDT Body Mass Index 23.59 09/10/2024 10:00 AM CDT Plan of Treatment Health Maintenance Due Date Last Done Comments Breast Cancer Screening-Mammogram 1983 Cervical Cancer Screening 1983 Depression Screening 1983 Hepatitis C Screening 1983 DTaP/Tdap/Td Vaccine (1 - Tdap) 10/05/1994 Varicella Vaccines (1 of 2 - 13+ 2-dose series) 10/05/1996 Hepatitis B Screening 10/05/2001 Regular Well Visit/Exam 18-64 10/05/2001 HPV Vaccines (1 - 3-dose SCD M series) 10/05/2010 Covid-19 Vaccine (3 - 2024-2 6 season) 2025 05/13/2021, 08/11/2020 Influenza Vaccine (#1) 2025 03/19/2017 Pneumococcal vaccine <65 Aged Out No longer eligible based on patient's age to complete this topic Insurance [facility] [id number] [facility] [employer] [employer] [facility] [id number] Care Teams Train Brakeman Relationship Specialty Start Date End Date Yaharoldoonsky, William Randall, DO PCP - General Internal Medicine 09/10/24
--- OUTSIDE RECORDS SUMMARY | 2025-04-10 09:17 | XMS_ITS | Clinical Summary ---
Author Organization [facility] Address [address] [place] [address] Care Team Providers Care Appraisal Specialist Name Role Phone Unavailable Primary Care Provider Unavailabl e Source Comments [facility],non-owned Affiliates and Associated Physician Practices is amultiple site organization consisting of ambulatory clinics and hospital sitesin [place], [place], [place] and [place]. This disclosure is being madepursuant to the Care Everywhere program and may not contain all information available regarding this patient. Last updated 18.[facility] Social History Tobacco Use Types Packs/Day Years Used Date Smoking Tobacco: Never Assessed Comments Unknown Sex and Gender Information Value Date Recorded Sex Assigned at Not on file Legal Sex Female 4:19 PM CDT Gender Identity Not on file Sexual Orientation Not on file Plan of Treatment Health Maintenance Due Date Last Done Comments LIPID TESTING 1983 MAMMOGRAM 1983 HIV SCREENING 10/05/1998 HEPATITIS C SCREENING 10/01/2001 DTAP/TDAP/TD VACCINES (1 - Tdap) 10/05/2002 HEPATITIS B VACCINE (1 of 3 - 19+ 3-dose series) 10/05/2002 PAP SMEAR 10/05/2004 HPV VACCINE (1 - 3-dose SCDM series) 10/05/2010 DEPRESSION SCREENING 06/06/2024 COVID-19 VACCINE (2 - 2024-2 6 season) 2025 08/11/2020 INFLUENZA VACCINE (#1) 2025 ZOSTER VACCINE (1 of 2) 10/05/2033 HIB VACCINE Aged Out No longer eligi ble based on patient's age to complete this topic MENINGOCOCCAL (Group B) VACC INE SHARED DECISION-MAKING Aged Out No longer eligibl e based on patient's age to complete this topic MENINGOCOCCAL GROUPS A/C/Y/W VACCINE Aged Out No longer eligible b ased on patient's age to complete this topic PNEUMOCOCCAL VACCINE Aged Out No long er eligible based on patient's age to complete this topic Insurance HE[employer]LINK HE[employer]LINK HE[employer]LINK
== END 2025-04-10 08:53 | disposition home or self-care (01) ==
LOC: CHSIMG 08:53
PROVIDERS: PCP Internal Medicine; Visit Provider Obstetrics & Gynecology
DX: Z12.31 Encounter for screening mammogram for malignant neoplasm of breast (principal)
CPT/HCPCS: 77063; 77067

== ENCOUNTER 2025-05-05 17:25 | Emergency (ER) | payer OTHER, SELFPAY ==
[2025-05-05 17:34] VITALS: BP 120/55; PULSE 75; RESP 16; TEMP 36.1; O2SAT 100
[2025-05-05 17:45] LABS: EDUAAPPEAR Clear; EDUABILI Negative (Negative); EDUABLOOD 2+ (Negative); EDUACOLOR1 Light/Pale; EDUAGLUCOSE Negative (Negative); EDUAKETONE Negative (Negative); EDUALEUKO 1+ (Negative); EDUANITRATE Negative (Negative); EDUAPH 7.0; EDUAPROTEIN Negative (Negative); EDUASPGRAVITY 1.010; EDUAUROBILI 0.2
--- NOTE | 2025-05-05 17:51 | ED.FEMALEGU ---
HPI - Female Genitourinary General Chief complaint: Urogenital-Female Stated complaint: UTI SYMPTOMS Time Seen by Provider: 05/05/25 17:46 Source: patient and RN notes reviewed Mode of arrival: ambulatory Limitations: no limitations History of Present Illness HPI Narrative: 39-year-old female patient presents today with a 2 day history of dysuria, lower abdominal pressure, frequency, urgency. Denies fever vomiting, back pain or any additional symptoms. No OTC treatment prior to arrival. No recent antibiotic use. Related Data Allergies Allergy/AdvReac Type Severity Reaction Status Date / Time No Known Allergies Allergy Verified 05/05/25 17:34 [facility] Past Medical History Medical History Screening mammogram, encounter for Genital herpes Anxiety Social History Social History Smoking status: Former smoker Second hand tobacco smoke exposure: No Additional smoking assessment comments: smoked for 12-13 years Alcohol intake: current Drinks per week: 7 Alcohol use details: wine Substance use: current Substance use type: marijuana Other substance usage details: 1 time every 2 months? 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 Please see nursing chart for further information. There is no relevant family history pertinent to the presenting complaint Exam Narrative: GENERAL: Well-appearing, well-nourished, and in no acute distress. HEAD: Normocephalic, atraumatic. EYES: EOMI. No redness or drainage. Conjunctivae normal. ENT: Mucous membranes pink and moist. NECK: Normal AROM. CHEST: No respiratory distress. Clear to auscultation. HEART: Regular rate and rhythm. No murmur appreciated. ABDOMEN: Soft,nondistended, normal active bowel sounds.+ suprapubic tenderness.-CVAT EXTREMITIES: Normal range of motion. No edema. SKIN: Warm, dry, no rash. Capillary refill normal. Normal skin turgor. NEURO: No focal deficits. Alert and oriented x3. Gait steady. PSYCH: Normal affect. No signs of depression or anxiety. Course Course Level of Care: Express Care Visit Vital Signs Vital signs: Vital Signs Temperature 97 F L 05/05/25 17:34 Pulse Rate 75 05/05/25 17:34 Respiratory Rate 16 05/05/25 17:34 Blood Pressure 120/55 L 05/05/25 17:34 Pulse Oximetry 100 05/05/25 17:34 Temperature 97 F L 05/05/25 17:34 Pulse Rate 75 05/05/25 17:34 Respiratory Rate 16 05/05/25 17:34 Blood Pressure 120/55 L 05/05/25 17:34 Pulse Oximetry 100 05/05/25 17:34 Reviewed MDM - Female Genitourinary MDM Narrative Medical decision making narrative: 39-year-old female patient presents today with a 2 day history of dysuria, lower abdominal pressure, frequency, urgency. Denies fever vomiting, back pain or any additional symptoms. No OTC treatment prior to arrival. No recent antibiotic use. Upon exam, patient has some mild suprapubic tenderness without rebound or guarding. No CVA tenderness. Urinalysis shows 1+ leukocytes, 2+ blood. Culture pending. For for Keflex sent to pharmacy. Patient agrees with plan. Vital signs stable. Anticipatory guidance given. ED precautions given. Differential Diagnosis Differential diagnosis: Likely urinary tract infection, vaginitis, cystitis and other (Pyelonephritis) Lab Data Attestation: I reviewed the patient's lab results. Labs: Lab Results 05/05/25 Range/Units 17:43 POC Urine Color Light/pale POC Urine Clarity Clear POC Urine pH 7.0 POC Ur Specif [place] 1.010 POC Urine Protein Negative (Negative) POC Ur Glucose (UA) Negative (Negative) POC Urine Ketones Negative (Negative) POC Urine Blood 2+ (Negative) POC Urine Nitrite Negative (Negative) POC Urine Bilirubin Negative (Negative) POC Urine Urobilinogen 0.2 POC U Leukocyte Esteras 1+ (Negative) Critical Care Time Critical Care Time Critical Care Time: No Discharge Plan Discharge Clinical Impression: UTI (urinary tract infection) Qualifiers: Urinary tract infection type: acute cystitis Hematuria presence: with hematuria Qualified Code(s): N30.01 - Acute cystitis with hematuria Patient Disposition: Home Condition: Stable Instructions: Antibiotic Form, Urinary Tract Infection in Women (ED) Additional Instructions: Your urine shows infection today. Take Keflex as prescribed until gone. Your urine will be sent of for a culture to identify what type of bacteria is causing your infection. If the culture shows that your medication will not get rid of your infection, you will be notified and a new antibiotic will be called in for you. If your symptoms worsen to include fever, sweats, chills, nausea, vomiting, severe abdominal or back pain, please go to the ER for further evaluation. Patient Language: [place] Prescriptions: New cephalexin 500 mg capsule 500 mg PO BID 7 Days Qty: 14 0RF No Action bupropion HCl 150 mg tablet extended release 24 hr 300 mg PO DAILY Qty: 360 1RF Follow-up/Referrals: William Shaw DO [Primary Care Provider, Internal Medicine] Time of Disposition: 17:54
== END 2025-05-05 17:59 | disposition home or self-care (01) ==
PROVIDERS: Emergency Provider Nurse Practitioner; PCP Internal Medicine
DX: N30.01 Acute cystitis with hematuria (principal); F41.9 Anxiety disorder, unspecified; Z87.891 Personal history of nicotine dependence
CPT/HCPCS: 81003; 87086; 87186; 99213; G0463